=== PATIENT | female | born 1965 | race Caucasian/White ===

== ENCOUNTER → 2022-01-24 | Day surgery (SDC) | payer BC ==
[2022-01-24] MEDS: Brimonidine 0.2% Ophth Soln 5 ML Bottle EYERT SCH ×2 (16:20→17:25)
[2022-01-24] MEDS: Phenylephrine 2.5% Ophth Soln 2 ML Bot EYERT SCH ×2 (16:25→16:36)
[2022-01-24] MEDS: Tropicamide 1% Ophth Soln 15 ML Bottle EYERT SCH ×2 (16:30→16:40)
== END ==
LOC: JD.SDS 16:52
PROVIDERS: ATTEND Ophthalmology
DX: H26.491 Other secondary cataract, right eye (principal); E03.9 Hypothyroidism, unspecified; F41.9 Anxiety disorder, unspecified